=== PATIENT | female | born 1995 ===

== ENCOUNTER 2017-04-30 09:46 | Emergency (ER) | payer OTHER ==
[~2017-04-30] VITALS: Ht 162.6 cm; Wt 61.6 kg
[2017-04-30 09:48] VITALS: Ht 162.6 cm; Wt 61.6 kg
[2017-04-30] MEDS ORDERED: IBUP800T25 PO (10:49)
[2017-04-30] MEDS ORDERED: AMOX1TAB10 PO (10:49)
--- NOTE | 2017-04-30 16:33 | ERD ---
ER Documentation Chief Complaint Chief Complaint SORE THROAT,HEADACHE X 5 DAYS HPI 21-year-old female complaining of sore throat 5 days. Denies fever. Has mild dry cough. Denies nasal congestion. Has been taking Mucinex and Benadryl for symptoms however has not experienced relief. No sick contacts. Denies medical problems. NKDA. Surgical history: Denies ROS All systems reviewed and are negative except as per history of present illness. Medications Home Meds Active Scripts Ibuprofen* (Motrin*) 800 Mg Tab, 800 MG PO Q6, #30 TAB Prov:GARCIA CROSS PA-C 04/30/17 Amoxicillin/Potassium Clav (Amox-Clav 875-125 mg Tablet) 875-125 mg Tab, 1 TAB PO BID for 7 Days, #14 TAB Prov:GARCIA CROSS PA-C 04/30/17 PMhx/Soc Medical and Surgical Hx: pt denies Medical Hx, pt denies Surgical Hx Hx Alcohol Use: No Hx Substance Use: No Hx Tobacco Use: No Smoking Status: Never smoker Physical Exam Vitals Vital Signs Date Time Temp Pulse Resp B/P Pulse Ox O2 Delivery O2 Flow Rate FiO2 04/30/17 09:48 98.8 76 18 116/65 99 Physical Exam GENERAL: The patient is well-appearing, well-nourished, in no acute distress HEENT: Atraumatic. Conjunctivae are pink. Pupils equal, round, and reactive to light. There is no scleral icterus. Tympanic membranes clear bilaterally. Oropharynx erythematous. Uvula midline. No nystagmus or photophobia. NECK: C-spine is soft and supple. There is no meningismus. There is no cervical lymphadenopathy. CHEST: Clear to auscultation bilaterally. There are no rales, wheezes or rhonchi. HEART: Regular rate and rhythm. No murmurs, clicks, rubs or gallops. No S3 or S4. Procedures/MDM I have low suspicion for peritonsillar or retropharyngeal abscess. Patient will be treated with antibiotics as I have concern for possible strep infection. I have low suspicion for pneumonia, meningitis or sepsis. Patient is discharged with strict ER precautions and recommended to follow-up with PMD within 1-2 days for close evaluation. Departure Diagnosis: Primary Impression: Sore throat Condition: Stable Patient Instructions: Self-Care for Sore Throats Referrals: [facility] YOU HAVE RECEIVED A MEDICAL SCREENING EXAM AND THE RESULTS INDICATE THAT YOU DO NOT HAVE A CONDITION THAT REQUIRES URGENT TREATMENT IN THE EMERGENCY DEPARTMENT. FURTHER EVALUATION AND TREATMENT OF YOUR CONDITION CAN WAIT UNTIL YOU ARE SEEN IN YOUR DOCTORS OFFICE WITHIN THE NEXT 1-2 DAYS. IT IS YOUR RESPONSIBILITY TO MAKE AN APPOINTMENT FOR FOLOW-UP CARE. IF YOU HAVE A PRIMARY DOCTOR --you should call your primary doctor and schedule an appointment IF YOU DO NOT HAVE A PRIMARY DOCTOR YOU CAN CALL OUR PHYSICIAN REFERRAL HOTLINE AT IF YOU CAN NOT AFFORD TO SEE A PHYSICIAN YOU CAN CHOSE FROM THE FOLLOWING [facility] [address] [facility] [address] [facility] [facility] [address] [facility] [address] [facility] [address] [facility]. [facility]. [address] Additional Instructions: FOLLOW UP WITH YOUR PRIMARY CARE PHYSICIAN TOMORROW.Return to this facility if you are not improving as expected. GARCIA CROSS PA-C Apr 30, 2017 16:33
== END 2017-04-30 11:37 | disposition home or self-care (01) ==
LOC: FTE 09:46
DX: J02.9 Acute pharyngitis, unspecified (principal)
CPT/HCPCS: 99283